=== PATIENT | male | born 1970 | race Caucasian/White ===

== ENCOUNTER 2017-09-11 12:04 | Emergency (ER) | payer MEDICAID ==
[~2017-09-11] VITALS: Ht 170.2 cm; Wt 78.2 kg
[2017-09-11 12:11] VITALS: BP 132/95
--- NOTE | 2017-09-11 12:12 | NUR ---
PT AA&OX4 AT THIS TIME; EVEN AND STEADY GAIT; PT TO LOBBY AWAITING OPEN BED.
--- NOTE | 2017-09-11 15:00 | NUR ---
47M BIB FAMILY C/O HEADACHE, NAUSEA/VOMITING AND CONSTIPATION X 3 DAYS. PT STATES NO TRAUMA OR INJURY TO HEAD AT THIS TIME. SKIN IS PINK/WARM/DRY; AAOX4 WITH EVEN AND STEADY GAIT; LUNGS CLEAR BL; HR EVEN AND REGULAR; PT DENIES ANY FEVER, CP, SOB, OR COUGH AT THIS TIME; PATIENT STATES PAIN OF 8/10 AT THIS TIME; VSS; PATIENT POSITIONED FOR COMFORT; HOB ELEVATED; BEDRAILS UP X2; BED DOWN. ER MD MADE AWARE OF PT STATUS.
[2017-09-11] MEDS ORDERED: diphenhydrAMINE 50 MG/ML VIAL IM ONE (15:20)
[2017-09-11] MEDS ORDERED: PROCHLORPERAZINE 10 MG/2 ML VIAL IM ONE (15:20)
[2017-09-11 17:20] VITALS: BP 120/90
--- NOTE | 2017-09-11 17:20 | NUR ---
Patient discharged with v/s stable. Written and verbal after care instructions given and explained. Patient alert, oriented and verbalized understanding of instructions. Ambulatory with steady gait. All questions addressed prior to discharge. ID band removed. Patient advised to follow up with PMD. Rx of BENADRYL AND COMPAZINE given. Patient educated on indication of medication including possible reaction and side effects. Opportunity to ask questions provided and answered.
== END 2017-09-11 17:20 | disposition home or self-care (01) ==
LOC: MED 12:04
DX: R51 Headache (principal); I10 Essential (primary) hypertension
CPT/HCPCS: 96372; 99284; J0780; J1200

== ENCOUNTER 2019-09-08 08:33 | Emergency (ER) | payer MEDICAID ==
[~2019-09-08] VITALS: Ht 170.2 cm; Wt 79.4 kg
--- NOTE | 2019-09-08 08:36 | NUR ---
Pt ambulated to bed 2.
[2019-09-08 08:40] VITALS: BP 170/57
--- NOTE | 2019-09-08 08:50 | NUR ---
C/O POUNDING RIGHT SIDED HEADACHE WITH NAUSEA X 3 DAYS DENIES INJURY OR DIZZINESS--- FULL CLEAR SPEECH, NO FACIAL ASYMMETRY, EQUAL SNOW SHOVELER DENIES COUGH OR RECENT COLD SYMPTOMS ,PT AWAKE , ALERT ,AMBULATORY WITH STEADY GAIT,NOT IN DISTRESS. HX--HTN RX--LISINOPRIL 10MG QD
--- NOTE | 2019-09-08 08:58 | NUR ---
DR JOSEPH AT BEDSIDE.
--- NOTE | 2019-09-08 09:19 | NUR ---
PT LYING ON AWAKE ,ALERT,AMBULATORY WITH STEADY GAIT ,PAIN LEVEL FOR HEADACHE IS 6/10.DENIES N/ DIZZINESS,NOR VOMITTING, NO BLURRING OF VISSION .
[2019-09-08 09:24] VITALS: BP 174/78
--- NOTE | 2019-09-08 09:24 | NUR ---
Patient discharged with v/s stable. Written and verbal after care instructions given and explained headache. Patient alert, oriented and verbalized understanding of instructions. Ambulatory with steady gait. All questions addressed prior to discharge. ID band removed. Patient advised to follow up with PMD. Rx of lisinopril given. Patient educated on indication of medication including possible reaction and side effects. Opportunity to ask questions provided and answered.
== END 2019-09-08 09:24 | disposition home or self-care (01) ==
LOC: MED 08:33
DX: R51 Headache (principal); I10 Essential (primary) hypertension
CPT/HCPCS: 99283

== ENCOUNTER 2020-06-22 22:17 | Emergency (ER) | payer MEDICAID ==
[~2020-06-22] VITALS: Ht 170.2 cm; Wt 85.3 kg
[2020-06-22 22:22] VITALS: BP 161/101
[2020-06-22] MEDS ORDERED: PROCHLORPERAZINE 10 MG/2 ML VIAL IM ONE (23:15)
[2020-06-22] MEDS ORDERED: diphenhydrAMINE 50 MG/ML VIAL IM ONE (23:15)
[2020-06-22] MEDS ORDERED: CLONIDINE HYDROCHLORIDE 0.1 MG TAB PO ONE (23:15)
[2020-06-22] MEDS ORDERED: KETOROLAC 30 MG/ML VIAL IM ONE (23:15)
[2020-06-22] MEDS ORDERED: KETOROLAC 30 MG/ML VIAL IVP ONE (23:50)
[2020-06-22] MEDS ORDERED: PROCHLORPERAZINE 10 MG/2 ML VIAL IVP ONE (23:50)
[2020-06-22] MEDS ORDERED: diphenhydrAMINE 50 MG/ML VIAL IVP ONE (23:50)
[2020-06-23 00:45] VITALS: BP 156/97
== END 2020-06-23 00:45 | disposition home or self-care (01) ==
LOC: MED 22:17
DX: I10 Essential (primary) hypertension (principal); R51.9 Headache, unspecified
CPT/HCPCS: 96374; 96375; 99284; J0780; J1200; J1885